=== PATIENT | male | born 1935 | race African-American/Black ===

== ENCOUNTER 2020-01-18 10:52 | Inpatient (IN) | payer MEDICARE, OTHER ==
[~2020-01-18] VITALS: Ht 180.3 cm; Wt 88.5 kg
[2020-01-18] MEDS ORDERED: Cefepime HCl 1 GM in D5W 55 ML IVPB ONE (11:00)
--- NOTE | 2020-01-18 11:00 | NUR ---
ED Nurse Note: pt BIBA from [facility] for hematuria. pt has suprapubic cobian catheter, urine in drainage bag appears to be cloudy yellow, no blood or redness is ntoed in bag. cathter insertion site dressing is clean dry and intact. pt denies any pain at this time. strong odor is noted
[2020-01-18 11:25] LABS: BASOPHILS % (AUTO) 2.5 % (0.0-2.0); EOSINOPHILS % (AUTO) 6.5 % (0.0-3.0); HEMATOCRIT 39.5 % (42.0-52.0); HEMOGLOBIN 12.5 G/DL (14.2-18.0); LYMPHOCYTES % (AUTO) 34.3 % (20.0-45.0); MEAN CORPUSCULAR VOLUME 98 FL (80-99); MONOCYTES % (AUTO) 8.3 % (1.0-10.0); NEUTROPHILS % (AUTO) 48.4 % (45.0-75.0); PLATELET COUNT 185 K/UL (150-450); RED BLOOD COUNT 4.02 M/UL (4.70-6.10); RED CELL DISTRIBUTION WIDTH 12.2 % (11.6-14.8)
[2020-01-18 11:26] LABS: APPEARANCE,URINE CLOUDY; BILIRUBIN, URINE NEGATIVE (NEGATIVE); GLUCOSE, URINE (UA) NEGATIVE (NEGATIVE); KETONES,URINE NEGATIVE (NEGATIVE); LEUKOCYTE ESTERASE ,URINE 3+ (NEGATIVE); NITRITE,URINE NEGATIVE (NEGATIVE); PH,URINE 9 (4.5-8.0); PROTEIN,URINE 3+ (NEGATIVE); UROBILINOGEN,URINE NORMAL MG/DL (0.0-1.0)
[2020-01-18 11:35] LABS: COLOR,URINE PALE YELLOW
[2020-01-18 11:40] LABS: ANION GAP 8 mmol/L (5-15); BLOOD UREA NITROGEN 18 mg/dL (7-18); CALCIUM 8.5 MG/DL (8.5-10.1); CARBON DIOXIDE 28 MMOL/L (21-32); CHLORIDE 107 MMOL/L (98-107); CREATININE 1.1 MG/DL (0.55-1.30); POTASSIUM 4.1 MMOL/L (3.5-5.1); SODIUM 143 MMOL/L (136-145)
[2020-01-18 11:44] LABS: ALANINE AMINOTRANSFERASE 10 U/L (12-78); ALBUMIN 3.3 G/DL (3.4-5.0); ALBUMIN/GLOBULIN RATIO 0.8 (1.0-2.7); ALKALINE PHOSPHATASE 62 U/L (46-116); ASPARTATE AMINO TRANSFERASE 21 U/L (15-37); BILIRUBIN,TOTAL 0.5 MG/DL (0.2-1.0)
--- NOTE | 2020-01-18 12:40 | NUR ---
ED Nurse Note: ERMD AT BEDSIDE REASSESSING SUPRAPUBIC CATH
[2020-01-18 13:03] VITALS: BP 136/79
--- NOTE | 2020-01-18 13:04 | NUR ---
ED Nurse Note: PT GIVEN MEAL AND JUICE
--- NOTE | 2020-01-18 13:23 | Emergency Room Report ---
History of Present Illness General Chief Complaint: General Complaint Source: Patient Present Illness HPI 84-year-old male with suprapubic catheter here for his suspicion of urinary tract infection. Patient repeatedly gets hematuria when he gets urinary tract infections. Per the residential report the patient began to have hematuria yesterday. According to the paramedics when they went to go pickers material handlers the patient there was a winch runner in the patient's room who had told him that the patient's suprapubic catheter had become dislodged and the winch runner had replaced the catheter. No nurses were available to corroborate the story. Patient denies any complaints at this time. Denies headaches, vision changes, fevers, chills, chest pain, palpitation, shortness of breath, back pain, abdominal pain, nausea, vomiting, diarrhea, dysuria. Allergies: Uncoded Allergies: TYRAMINE (Allergy, Unknown, 11/11/11) COVID-19 Screening Contact w/high risk pt: No Experienced COVID-19 symptoms?: No COVID-19 Testing performed SOCIAL INSURANCE ADMINISTRATOR: No Nursing Documentation-[facility] Past Medical History: No History, Except For Hx Hypertension: Yes History Of Psychiatric Problem: Yes - SCHIZOPHRENIRA Review of Systems All Other Systems: negative except mentioned in HPI Physical Exam Vital Signs Date Time Temp Pulse Resp B/P (MAP) Pulse Ox O2 Delivery O2 Flow Rate FiO2 01/18/20 10:54 16 100 Room Air 01/18/20 11:10 89 01/18/20 13:03 98.4 136/79 Sp02 EP Interpretation: reviewed, normal General Appearance: no apparent distress, alert, non-toxic Head: normocephalic, atraumatic Eyes: bilateral eye normal inspection, bilateral eye PERRL ENT: hearing grossly normal, normal pharynx, no angioedema, normal voice Neck: full range of motion, supple/symm/no masses Respiratory: chest non-tender, lungs clear, normal breath sounds, speaking full sentences Cardiovascular #1: regular rate, rhythm, no edema Cardiovascular #2: 2+ carotid (R), 2+ carotid (L), 2+ radial (R), 2+ radial (L), 2+ dorsalis pedis (R), 2+ dorsalis pedis (L) Gastrointestinal: normal bowel sounds, non tender, soft, non-distended, no guarding, no rebound Rectal: deferred Genitourinary: normal inspection, no CVA tenderness, other - Suprapubic catheter in proper positioning without any surrounding erythema or induration or drainage. Catheter balloon was properly inflated Musculoskeletal: back normal, normal range of motion, gait/station normal, non- tender Neurologic: alert, motor strength/tone normal, sensory intact, responsive, speech normal Psychiatric: judgement/insight normal, memory normal, mood/affect normal, no suicidal/homicidal ideation Lymphatic: no adenopathy Medical Decision Making Diagnostic Impression: Primary Impression: UTI (urinary tract infection) Additional Impression: Suprapubic catheter dysfunction ER Course Laboratory Tests Test 01/18/20 11:10 White Blood Count 4.0 K/UL (4.8-10.8) L Red Blood Count 4.02 M/UL (4.70-6.10) L Hemoglobin 12.5 G/DL (14.2-18.0) L Hematocrit 39.5 % (42.0-52.0) L Mean Corpuscular Volume 98 FL (80-99) Mean Corpuscular Hemoglobin 31.0 PG (27.0-31.0) Mean Corpuscular Hemoglobin Concent 31.6 G/DL (32.0-36.0) L Red Cell Distribution Width 12.2 % (11.6-14.8) Platelet Count 185 K/UL (150-450) Mean Platelet Volume 7.3 FL (6.5-10.1) Neutrophils (%) (Auto) 48.4 % (45.0-75.0) Lymphocytes (%) (Auto) 34.3 % (20.0-45.0) Monocytes (%) (Auto) 8.3 % (1.0-10.0) Eosinophils (%) (Auto) 6.5 % (0.0-3.0) H Basophils (%) (Auto) 2.5 % (0.0-2.0) H Urine Color Pale yellow Urine Appearance Cloudy Urine pH 9 (4.5-8.0) Urine Specific [place] 1.010 (1.005-1.035) Urine Protein 3+ (NEGATIVE) H Urine Glucose (UA) Negative (NEGATIVE) Urine Ketones Negative (NEGATIVE) Urine Blood 3+ (NEGATIVE) H Urine Nitrite Negative (NEGATIVE) Urine Bilirubin Negative (NEGATIVE) Urine Urobilinogen Normal MG/DL (0.0-1.0) Urine Leukocyte Esterase 3+ (NEGATIVE) H Urine RBC 0-2 /HPF (0 - 0) H Urine WBC 0-2 /HPF (0 - 0) Urine Squamous Epithelial Cells Occasional /LPF Urine Amorphous Sediment Many /LPF (NONE) H Urine Bacteria Few /HPF (NONE) Sodium Level 143 MMOL/L (136-145) Potassium Level 4.1 MMOL/L (3.5-5.1) Chloride Level 107 MMOL/L (98-107) Carbon Dioxide Level 28 MMOL/L (21-32) Anion Gap 8 mmol/L (5-15) Blood Urea Nitrogen 18 mg/dL (7-18) Creatinine 1.1 MG/DL (0.55-1.30) Estimated Glomerular Filtration Rate > 60 mL/min (>60) Glucose Level 86 MG/DL (74-106) Lactic Acid Level 0.70 mmol/L (0.4-2.0) Calcium Level 8.5 MG/DL (8.5-10.1) Total Bilirubin 0.5 MG/DL (0.2-1.0) Aspartate Amino Transferase (AST) 21 U/L (15-37) Alanine Aminotransferase (ALT) 10 U/L (12-78) L Alkaline Phosphatase 62 U/L (46-116) Total Protein 7.7 G/DL (6.4-8.2) Albumin 3.3 G/DL (3.4-5.0) L Globulin 4.4 g/dL Albumin/Globulin Ratio 0.8 (1.0-2.7) L 84-year-old male here for suspicion of urinary tract infection. The patient has a suprapubic catheter which according to the cotton weigher operator report had dislodged at [facility] residential and "a winch runner replaced it." There were no nurses available to corroborate the story. However in the emergency department the catheter appears to be properly placed and the balloon was properly inflated with 10 cc of saline. However the catheter was only draining a very small amount of urine. Urinalysis did reveal evidence of urinary tract infection. CBC, CMP all unremarkable. Urine cultures and blood cultures pending. Patient received a dose of cefepime in the emergency department. No evidence of sepsis. Received 1 L of normal saline. Admitted to [facility]. Last Vital Signs Date Time Temp Pulse Resp B/P (MAP) Pulse Ox O2 Delivery O2 Flow Rate FiO2 01/18/20 13:03 98.4 89 16 136/79 99 Room Air Referrals: Peace Devries MD (PCP) Chico Mendieta M.D. Jan 18, 2020 13:23
--- NOTE | 2020-01-18 13:35 | NUR ---
ED Nurse Note: REPORT GIVEN TO KIZZY BRUNO
--- NOTE | 2020-01-18 13:58 | NUR ---
TRANSFER TO FLOOR: Patient transferred to [facility] as ordered, per ERMD. Report given to YANA Hopson. Belongings given to pt.
--- NOTE | 2020-01-18 14:05 | NUR ---
NURSE NOTES: Patient admitted from ER via rcastine, patient resides @ [facility]. Patient is awake, opens his eyes spontaneously but confused. Orientation given about the unit but unable to comprehended due to patient's cognitive status. Patient is a fall risk per garcia fall score. Bed alarm is on, side rails x3 up. Call light within reach. Head to toe skin assessment done, no redness or skin break down on pressure points. Patient's lower ex's are dry and scarly on bilateral foot. Proper skin care done. Supra pubic noted draining but leaking, no blood or sediment,patient also urinate,given urinal. IV is intact,no s/s of infiltration. Paged Dr. elizabeth for admission orders. Awaiting for return call.
--- NOTE | 2020-01-18 15:05 | NUR ---
NURSE NOTES: Received admission orders from Dr. elizabeth and Rn spoke to Emmett from [facility] to fax the medication list due to no name on the med sheet. Rn also spoke to patient's daughter Michaela who states that patient is full code. Will continue plan of care.
[2020-01-18 16:00] VITALS: BP 140/69
[2020-01-18] MEDS ORDERED: SENNA8.6 M2 PO (16:09)
[2020-01-18] MEDS ORDERED: METOPROLOL TART25 MG ORAL (16:09)
[2020-01-18] MEDS ORDERED: SPIRONOLACTONE50 MG ORAL (16:09)
[2020-01-18] MEDS ORDERED: FLOMAX0.4 MG ORAL (16:09)
--- NOTE | 2020-01-18 16:20 | NUR ---
NURSE NOTES: Specimen obtained for MRSA, VRE and CRE due to patient resides board and care.
[2020-01-18] MEDS ORDERED: FUROSEMIDE20 M1 ORAL (17:09)
[2020-01-18] MEDS ORDERED: FOLIC ACID1 MG ORAL (17:09)
[2020-01-18] MEDS ORDERED: DONEPEZIL HCL10 M2 ORAL (17:09)
[2020-01-18] MEDS ORDERED: DOCUSATE SODIU100 MG ORAL (17:09)
[2020-01-18] MEDS ORDERED: MEMANTINE HCL E21 MG PO (17:09)
[2020-01-18] MEDS ORDERED: GABAPENTIN100 MG ORAL (17:09)
[2020-01-18] MEDS ORDERED: DUTASTERIDE0.5 MG PO (17:09)
[2020-01-18] MEDS ORDERED: AMLODIPINE BESYL5 MG ORAL (17:09)
--- NOTE | 2020-01-18 17:24 | NUR ---
NURSE NOTES: Received medication list from [place] with patient's name on it. Continued all home meds except 3 meds that we do not carry, Dr. Devries made aware.
--- NOTE | 2020-01-18 17:30 | NUR ---
NURSE NOTES: Patient ate 100% of dinner without issues.No blood in the urine.
[2020-01-18] MEDS: Docusate 100mg cap ORAL SCH (18:14)
--- NOTE | 2020-01-18 18:56 | NUR ---
NURSE HAND-OFF: Important Events on Shift:admission from [facility] Patient Status: stable Diet: low sodium with mech soft chopped Pending Orders: Pending Results/Labs: Pending MD notification: Latest Vital Signs: Temperature 97.7 , Pulse 59 , B/P 140 /69 , Respiratory Rate 21 , O2 SAT 98 , Room Air, O2 Flow Rate . Vital Sign Comment: Latest Page Fall Score: 50 Fall Risk: High Risk Safety Measures: Call light Within Reach, Bed Alarm Zone 1, Side Rails Side Rails x3, Bed position Low and Locked. Fall Precautions: Yellow Socks Yellow Gown Door Sign Patient Fall Education Report given to Mamie and endorsed plan of care.
--- NOTE | 2020-01-18 19:30 | NUR ---
NURSE NOTES: RECEIVED PATIENT FROM KIZZY CHANG. PATIENT IS AWAKE, RESTING IN BED, AAOX1, TO SELF, CONFUSED, ON ROOM AIR, NO ACUTE DISTRESS NOTED. VSS. AFEBRILE. PATIENT DENIES SOB AND PAIN. PIV ON RIGHT HAND 22G INTACT AND PATENT. BED IS LOCKED AND LOW, BED ALARMS ACTIVE, SIDE RAILS UPX2 AND CALL LIGHT IS WITHIN REACH. WILL CONTINUE TO MONITOR.
[2020-01-18 20:00] VITALS: BP 122/65
[2020-01-18] MEDS: Tamsulosin 0.4mg cap ORAL SCH (22:04)
[2020-01-18] MEDS: Cefepime HCl 1 GM in D5W 55 ML IVPB SCH (22:04)
[2020-01-18] MEDS: Acetaminophen 500mg (ES) tab ORAL PRN (22:16)
[2020-01-19] VITALS: BP 116/66
[2020-01-19 04:00] VITALS: BP 132/70
[2020-01-19 07:31] LABS: BASOPHILS % (AUTO) 1.4 % (0.0-2.0); HEMATOCRIT 37.6 % (42.0-52.0); HEMOGLOBIN 12.1 G/DL (14.2-18.0); LYMPHOCYTES % (AUTO) 48.9 % (20.0-45.0); MEAN CORPUSCULAR VOLUME 97 FL (80-99); MONOCYTES % (AUTO) 8.7 % (1.0-10.0); PLATELET COUNT 161 K/UL (150-450); RED BLOOD COUNT 3.86 M/UL (4.70-6.10); RED CELL DISTRIBUTION WIDTH 11.8 % (11.6-14.8); WHITE BLOOD COUNT 4.2 K/UL (4.8-10.8)
--- NOTE | 2020-01-19 07:38 | NUR ---
HAND-OFF: Report given to KIZZY Ramirez.
[2020-01-19 07:48] LABS: ALANINE AMINOTRANSFERASE 11 U/L (12-78); ALBUMIN/GLOBULIN RATIO 0.7 (1.0-2.7); ALKALINE PHOSPHATASE 53 U/L (46-116); ANION GAP 6 mmol/L (5-15); ASPARTATE AMINO TRANSFERASE 17 U/L (15-37); BILIRUBIN,TOTAL 0.5 MG/DL (0.2-1.0); BLOOD UREA NITROGEN 16 mg/dL (7-18); CALCIUM 8.2 MG/DL (8.5-10.1); CARBON DIOXIDE 28 MMOL/L (21-32); CHLORIDE 106 MMOL/L (98-107); POTASSIUM 3.6 MMOL/L (3.5-5.1); SODIUM 140 MMOL/L (136-145)
--- NOTE | 2020-01-19 07:50 | NUR ---
NURSE NOTES: Received patient on bed, awake and alert. IV intact and patent. Suprapubic catheter present. Bed in low and locked position and call light in reach. Patient educated to use call light for assistance before attempting to sit up. No signs of respiratory distress. Patient states he has a mild headache, will give PRN medication. Room board updated, will continue to monitor.
[2020-01-19 08:00] VITALS: BP 143/78
[2020-01-19] MEDS: Acetaminophen 500mg (ES) tab ORAL PRN (09:20)
[2020-01-19] MEDS: Cefepime HCl 1 GM in D5W 55 ML IVPB SCH ×2 (09:20→20:07)
[2020-01-19] MEDS: Sennosides 8.6mg tab ORAL SCH (09:20)
[2020-01-19] MEDS: Docusate 100mg cap ORAL SCH ×2 (09:21→17:08)
[2020-01-19] MEDS: Spironolactone 50mg tab ORAL SCH (09:21)
[2020-01-19] MEDS: Donepezil 10mg tab ORAL SCH (09:21)
[2020-01-19 12:00] VITALS: BP 140/81
--- NOTE | 2020-01-19 12:25 | NUR ---
NURSE NOTES: MD Walls changed suprapubic catheter to 16 tajik cobian. Catheter secured to right lega nd intact and patent and draining.
--- NOTE | 2020-01-19 15:00 | Consultation ---
DATE OF CONSULTATION: 01/19/2020 INFECTIOUS DISEASES CONSULTATION CONSULTING PHYSICIAN: Wilner Whitney MD. PRIMARY ATTENDING PHYSICIAN: Peace Devries MD. REASON FOR CONSULTATION: UTI. HISTORY OF PRESENT ILLNESS: This is an 84-year-old male admitted yesterday from nursing facility because of hematuria. The patient is suspected of UTI. The patient has suprapubic catheter and gets frequent infection. The patient's catheter was changed today. PAST MEDICAL HISTORY: Significant for Alzheimer dementia, hypertension, suprapubic catheter. ALLERGIES: MEDICATIONS: Getting Senokot, Lasix, Aricept, amlodipine, cefepime, Flomax, metoprolol, gabapentin, Colace, Tylenol. SOCIAL HISTORY: , intermediate resident. REVIEW OF SYSTEMS: The patient is hard of hearing. Has some pain in the lower abdomen especially during urination. PHYSICAL EXAMINATION: VITAL SIGNS: Temperature 97.3, pulse 55, blood pressure 143/78. GENERAL APPEARANCE: No acute distress, seems to have normal weight. HEAD AND NECK: Watts conjunctiva. HEART: Normal rate. LUNGS: Clear. ABDOMEN: Soft. GENITOURINARY: There is a suprapubic catheter. EXTREMITIES: No edema. NEUROLOGIC: Awake, responsive. LABORATORY AND DIAGNOSTIC DATA: Sodium 140, potassium 3.6, chloride 106, bicarb 28, BUN 16, creatinine is 1, glucose is 84. Normal LFT. WBC 4.2, hemoglobin 12.1, hematocrit 37.6, platelets is 161. UA showed leukocyte esterase 3+, amorphous sediment 3+, blood 3+. IMPRESSION: 1. UTI. 2. BPH. 3. Alzheimer dementia. 4. Suprapubic catheter infection that was changed. 5. Hypertension. RECOMMENDATION: Continue cefepime. We will follow up the cultures. At the end of my exam, I thank Dr. Devries for involving me in the care of this patient. Wilner Whitney M.D. DR: Lisette JOB#: [id number] CC:
[2020-01-19 16:00] VITALS: BP 132/65
--- NOTE | 2020-01-19 16:18 | NUR ---
NURSE NOTES: Received pt from KIZZY Ramirez for reassignment at 1600. Pt in bed, alert and oriented x 1, bed in lowest position with breaks engaged and alarm on, no SOB, IV line present on right hand, denies any pain or discomfort at this time, on room air, suprapubic catheter intact and in place, will continue to monitor and proceed with plan of care, call light within reach.
--- NOTE | 2020-01-19 17:00 | Consultation ---
DATE OF CONSULTATION: 01/19/2020 REASON FOR CONSULTATION: History of gross hematuria, nonfunctioning suprapubic catheter. HISTORY OF PRESENT ILLNESS: The patient was seen on with the above complaints. He is noncommunicative, so it is difficult to obtain history and status of his complaints. He does have a suprapubic tube in the low abdomen with minimal urine output and some white purulent discharge. REVIEW OF SYMPTOMS: Reviewed in the chart. MEDICATION LIST: Reviewed in the chart. FAMILY HISTORY: Reviewed in the chart. PHYSICAL EXAMINATION: VITAL SIGNS: He is afebrile. Vital signs are stable. ABDOMEN: Soft and nontender. GENITOURINARY: Scrotal exam is normal. PROCEDURE: The old suprapubic catheter, 16-Pakistani Garsia was removed and a new 16-Pakistani Garsia catheter was reinserted through the fistula tract. The bladder was irrigated with 40 mL of normal saline. No evidence of hematuria. The balloon was inflated to 10 mL of water and dressing was changed around the suprapubic catheter. The patient tolerated the procedure well. ASSESSMENT AND PLAN: Chronic retention, retained suprapubic tube. I would recommend to change his suprapubic tube at least every 3 months. The best plan will be every 1 month. I will follow this patient with you. Johnny Walls M.D. DR: Everette JOB#: [id number] CC:
--- NOTE | 2020-01-19 19:26 | NUR ---
NURSE HAND-OFF: Important Events on Shift:[new suprapubic catheter in place, safety and comfort] Patient Status: [stable] Diet: [low sodium mechanical soft chopped] Pending Orders: [] Pending Results/Labs:[] Pending MD notification:[] Latest Vital Signs: Temperature 97.6 , Pulse 60 , B/P 132 /65 , Respiratory Rate 16 , O2 SAT 97 , Room Air, O2 Flow Rate . Vital Sign Comment: [] Latest Page Fall Score: 50 Fall Risk: High Risk Safety Measures: Call light Within Reach, Bed Alarm Zone 1, Side Rails Side Rails x2, Bed position Low and Locked. Fall Precautions: Yellow Socks Yellow Gown Door Sign Patient Fall Education Report given to [KIZZY Albarado].
--- NOTE | 2020-01-19 19:36 | NUR ---
NURSE NOTES: Patient awake in bed, on room air, no signs or complaint of pain. With IV on right hand. Instructed to use call light for assistance. Bed in lowest, lock engaged and alarm on. Will continue plan of care.
[2020-01-19 20:00] VITALS: BP 119/66
[2020-01-19] MEDS: Tamsulosin 0.4mg cap ORAL SCH (20:07)
--- NOTE | 2020-01-19 20:30 | History and Physical Report ---
DATE OF ADMISSION: 01/18/2020 HISTORY OF PRESENT ILLNESS: Patient is a poor historian. Has dementia. Patient is being admitted because of UTI and initial hematuria. Patient's suprapubic catheter was also dislodged. Patient denies nausea, vomiting, or diarrhea. Denies pain. Denies shortness of breath. Denies cough. Denies fever or chills, but he is a poor historian. PAST MEDICAL HISTORY: History of BPH, dementia, history of leg edema, history of prostate CA, history of constipation, hypertension, hearing deficit. PAST SURGICAL HISTORY: Suprapubic catheter. ALLERGIES: To tyramine. MEDICATIONS: Folic acid, Colace, Lasix, gabapentin, Namenda, metoprolol, Senokot, spironolactone, and Flomax. FAMILY HISTORY: Noncontributory. SOCIAL HISTORY: No history of smoking. No history of alcohol or illicit drugs. Comes from a facility. REVIEW OF SYSTEMS: HEENT: Denies headaches. RESPIRATORY: Denies shortness of breath. Denies cough. CARDIOVASCULAR: Denies chest pain. GASTROINTESTINAL: Denies nausea, vomiting, or diarrhea. EXTREMITIES: Denies pain. CENTRAL NERVOUS SYSTEM: Denies change in speech pattern, however, is a poor historian. PHYSICAL EXAMINATION: VITAL SIGNS: Temperature is 97.3, pulse is 55, blood pressure is 143/78. HEENT: PERRLA. NECK: Supple. No lymphadenopathy. CHEST: Clear to auscultation. CARDIOVASCULAR: Bradycardic. No murmurs. GASTROINTESTINAL: Suprapubic catheter in place. Abdomen is soft. No organomegaly. EXTREMITIES: No edema. NEUROLOGIC: Patient is wheelchair bound. Lower extremity paresis. Oriented x1, which is his baseline. LABORATORY DATA: WBC of 4, hemoglobin of 12.5, platelets 185. Sodium 143, potassium 4.1, BUN of 18, creatinine 0.1. ASSESSMENT AND PLAN: UTI, hematuria, possible dislodgement of the suprapubic catheter. I have consulted Dr. Walls, Dr. Wilner Whitney. Antibiotics per Dr. Wilner Whitney. Peace Devries M.D. DR: RED JOB#: [id number] CC:
[2020-01-20] VITALS: BP 121/67
[2020-01-20 04:00] VITALS: BP 128/66
[2020-01-20] MEDS: Acetaminophen 500mg (ES) tab ORAL PRN (05:38)
--- NOTE | 2020-01-20 06:43 | NUR ---
NURSE HAND-OFF: Important Events on Shift: Cleaned, SCD's applied Patient Status: Diet: Low Sodium mech soft chopped Pending Orders: Pending Results/Labs: Pending MD notification: Latest Vital Signs: Temperature 98.2 , Pulse 54 , B/P 128 /66 , Respiratory Rate 16 , O2 SAT 95 , Room Air, O2 Flow Rate . Vital Sign Comment: Latest Page Fall Score: 50 Fall Risk: High Risk Safety Measures: Call light Within Reach, Bed Alarm Zone 1, Side Rails Side Rails x2, Bed position Low and Locked. Fall Precautions: Yellow Socks Yellow Gown Door Sign Patient Fall Education
--- NOTE | 2020-01-20 07:23 | NUR ---
HAND-OFF: Report given to KIZZY Ramirez.
--- NOTE | 2020-01-20 07:55 | NUR ---
NURSE NOTES: Received patient on bed awake and alert and eating. Subrapubic catheter intact and draining. IV site intact and patent. Bed in low and locked position, call light in reach. Patient was educated to use call light for assistance. No signs of respiratory distress or pain. Will continue to monitor.
[2020-01-20 08:00] VITALS: BP 127/73
[2020-01-20] MEDS: Donepezil 10mg tab ORAL SCH (09:29)
[2020-01-20] MEDS: Spironolactone 50mg tab ORAL SCH (09:29)
[2020-01-20] MEDS: Cefepime HCl 1 GM in D5W 55 ML IVPB SCH ×2 (09:29→22:12)
[2020-01-20] MEDS: Docusate 100mg cap ORAL SCH ×2 (09:30→17:58)
[2020-01-20] MEDS: Sennosides 8.6mg tab ORAL SCH (09:30)
--- NOTE | 2020-01-20 11:57 | Infectious Diseases Prog Note ---
Assessment/Plan Assessment/Plan IMPRESSION: 1. UTI. 2. BPH. 3. Alzheimer dementia. 4. Suprapubic catheter infection that was changed. 5. Hypertension. RECOMMENDATION: Continue cefepime Will f/u cultures Subjective ROS Limited/Unobtainable: Yes Respiratory: Reports: no symptoms Gastrointestinal/Abdominal: Reports: no symptoms Genitourinary: Reports: no symptoms Allergies: Uncoded Allergies: TYRAMINE (Allergy, Unknown, 11/11/11) Objective Last 24 Hour Vital Signs Date Time Temp Pulse Resp B/P (MAP) Pulse Ox O2 Delivery O2 Flow Rate FiO2 01/20/20 09:30 63 127/73 01/20/20 09:30 63 127/73 01/20/20 09:08 Room Air 01/20/20 08:00 97.5 63 18 127/73 (91) 95 01/20/20 04:00 98.2 54 16 128/66 (86) 95 01/20/20 00:00 97.9 55 16 121/67 (85) 94 01/19/20 20:26 Room Air 01/19/20 20:08 58 119/66 01/19/20 20:00 96.8 58 16 119/66 (83) 94 01/19/20 16:00 97.6 60 16 132/65 (87) 97 01/19/20 12:00 97.5 53 18 140/81 (100) 94 Height (Feet): 5 Height (Inches): 11.00 Weight (Pounds): 195 General Appearance: no acute distress HEENT: mucous membranes moist Respiratory/Chest: lungs clear Cardiovascular: normal rate Abdomen: soft, non tender Genitourinary: other - suprapubic catheter Extremities: no edema Neurologic/Psychiatric: alert, responsive Microbiology Date/Time Source Procedure Growth Status 01/18/20 16:10 Rectum - Final NO CARBAPENEM-RESISTANT ENTEROBACTERI... Complete 01/18/20 16:10 Rectum VRE Culture - Final NO VANCOMYCIN RESISTANT ENTEROCOCCUS ... 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 Complete Current Medications Medications (Trade) Dose Ordered Sig/Jaime Route PRN Reason Start Time Stop Time Status Last Admin Dose Admin Acetaminophen (Tylenol) 500 mg Q4H PRN ORAL Mild Pain (Pain Scale 1-3) 01/18/20 15:30 02/17/20 15:29 01/20/20 05:38 Amlodipine Besylate (Norvasc) 5 mg DAILY ORAL 01/19/20 09:00 02/18/20 08:59 01/20/20 09:30 Cefepime HCl 1 gm/ Dextrose 55 ml @ 110 mls/hr EVERY 12 HOURS IVPB 01/18/20 21:00 01/25/20 20:59 01/20/20 09:29 Docusate Sodium (Colace) 100 mg TWICE A DAY ORAL 01/18/20 18:00 02/17/20 17:59 01/20/20 09:30 Donepezil HCl (Aricept) 10 mg DAILY ORAL 01/19/20 09:00 02/18/20 08:59 01/20/20 09:29 Folic Acid (Folate) 1 mg DAILY ORAL 01/19/20 09:00 02/18/20 08:59 01/20/20 09:29 Furosemide (Lasix) 20 mg DAILY ORAL 01/19/20 09:00 02/18/20 08:59 01/20/20 09:30 Gabapentin (Neurontin) 200 mg THREE TIMES A DAY ORAL 01/18/20 18:00 02/17/20 17:59 01/20/20 09:30 Metoprolol Tartrate (Lopressor) 25 mg EVERY 12 HOURS ORAL 01/18/20 21:00 04/17/20 20:59 01/20/20 09:30 Sennosides (Senokot) 8.6 mg DAILY ORAL 01/19/20 09:00 02/18/20 08:59 01/20/20 09:30 Spironolactone (Aldactone) 50 mg DAILY ORAL 01/19/20 09:00 02/18/20 08:59 01/20/20 09:29 Tamsulosin HCl (Flomax) 0.4 mg QHS ORAL 01/18/20 21:00 02/17/20 20:59 01/19/20 20:07 Wilner Whitney MD Jan 20, 2020 11:57
--- NOTE | 2020-01-20 13:02 | General Progress Note ---
Subjective ROS Limited/Unobtainable: Yes Allergies: Uncoded Allergies: TYRAMINE (Allergy, Unknown, 11/11/11) Objective Last 24 Hour Vital Signs Date Time Temp Pulse Resp B/P (MAP) Pulse Ox O2 Delivery O2 Flow Rate FiO2 01/20/20 09:30 63 127/73 01/20/20 09:30 63 127/73 01/20/20 09:08 Room Air 01/20/20 08:00 97.5 63 18 127/73 (91) 95 01/20/20 04:00 98.2 54 16 128/66 (86) 95 01/20/20 00:00 97.9 55 16 121/67 (85) 94 01/19/20 20:26 Room Air 01/19/20 20:08 58 119/66 01/19/20 20:00 96.8 58 16 119/66 (83) 94 01/19/20 16:00 97.6 60 16 132/65 (87) 97 Intake and Output 01/19/20 01/20/20 19:00 07:00 Intake Total 800 ml 255 ml Output Total 1200 ml 700 ml Balance -400 ml -445 ml Intake Oral 800 ml 200 ml IV Total 55 ml Output Urine Total 1200 ml 700 ml Height (Feet): 5 Height (Inches): 11.00 Weight (Pounds): 195 Assessment/Plan Problem List: (1) Suprapubic catheter dysfunction ICD Codes: T83.010A - Breakdown (mechanical) of cystostomy catheter, initial encounter SNOMED: 893932817 (2) UTI (urinary tract infection) ICD Codes: N39.0 - Urinary tract infection, site not specified SNOMED: 90060066 Status: progressing Assessment/Plan: suprapubic cath is changed by dr sidhu uti abx per id obs reviwed chart Peace Devries MD Jan 20, 2020 13:02
[2020-01-20 13:23] VITALS: BP 112/64
--- NOTE | 2020-01-20 14:53 | NUR ---
NURSE NOTES: Patient refused lunch tray.
--- NOTE | 2020-01-20 15:06 | NUR ---
NURSE NOTES: Received pt from KIZZY Ramirez for reassignment at 1500. Pt in bed, alert and oriented x 1, bed in lowest position with breaks engaged and alarm on, no shortness of breath, IV line present on right hand, denies any pain or discomfort at this time, on room air, suprapubic catheter intact and in place, will continue to monitor and proceed with plan of care, call light within reach
[2020-01-20 16:00] VITALS: BP 124/62
--- NOTE | 2020-01-20 19:10 | NUR ---
NURSE HAND-OFF: Important Events on Shift:[monitoring VS and labs, turning q2, assisting with ADLS] Patient Status: [stable] Diet: [] Pending Orders: [] Pending Results/Labs:[] Pending MD notification:[] Latest Vital Signs: Temperature 97.2 , Pulse 58 , B/P 124 /62 , Respiratory Rate 16 , O2 SAT 95 , Room Air, O2 Flow Rate . Vital Sign Comment: [] Latest Page Fall Score: 50 Fall Risk: High Risk Safety Measures: Call light Within Reach, Bed Alarm Zone 1, Side Rails Side Rails x2, Bed position Low and Locked. Fall Precautions: Yellow Socks Yellow Gown Door Sign Patient Fall Education Report given to [KIZZY Albarado].
--- NOTE | 2020-01-20 19:28 | NUR ---
NURSE NOTES: Patient awake in bed, on room air, no complaint of SOB. Suprapubic cath intact and draining well. He was carrying the urine bag on the bed and wanted to go to the toilet. Encouraged to stay in bed and do his bowel due to fall risk. Call light and needs in reach. Bed in lowest, lock engaged and alarm on. Will continue plan of care.
[2020-01-20 20:00] VITALS: BP 112/57
[2020-01-20] MEDS: Tamsulosin 0.4mg cap ORAL SCH (22:12)
[2020-01-21] VITALS: BP 103/62
[2020-01-21 04:00] VITALS: BP 106/58
--- NOTE | 2020-01-21 06:22 | NUR ---
NURSE HAND-OFF: Important Events on Shift: moved from 401-1 to 419-1 Patient Status: stable Diet: low sodium Pending Orders: Pending Results/Labs: Pending MD notification: Latest Vital Signs: Temperature 97.0 , Pulse 57 , B/P 106 /58 , Respiratory Rate 16 , O2 SAT 94 , Room Air, O2 Flow Rate . Vital Sign Comment: Latest Page Fall Score: 50 Fall Risk: High Risk Safety Measures: Call light Within Reach, Bed Alarm Zone 1, Side Rails Side Rails x2, Bed position Low and Locked. Fall Precautions: Yellow Socks Yellow Gown Door Sign Patient Fall Education
--- NOTE | 2020-01-21 07:13 | NUR ---
HAND-OFF: Report given to KIZZY Hutchinson.
[2020-01-21 08:00] VITALS: BP 119/69
[2020-01-21] MEDS: Spironolactone 50mg tab ORAL SCH (08:28)
[2020-01-21] MEDS: Cefepime HCl 1 GM in D5W 55 ML IVPB SCH ×2 (08:28→20:37)
[2020-01-21] MEDS: Docusate 100mg cap ORAL SCH ×2 (08:28→17:27)
[2020-01-21] MEDS: Sennosides 8.6mg tab ORAL SCH (08:29)
[2020-01-21] MEDS: Donepezil 10mg tab ORAL SCH (08:30)
--- NOTE | 2020-01-21 10:09 | NUR ---
NURSE NOTES: received patient awake, alert oriented resting comfortably in bed, on room air, no complaint of SOB. HL patent, Suprapubic cath intact and draining well. on fall precaution . Call light and needs in reach. Bed in lowest, lock engaged and alarm on. Will continue plan of care buzz marroquin
--- NOTE | 2020-01-21 11:24 | NUR ---
RD ASSESSMENT & RECOMMENDATIONS SEE CARE ACTIVITY FOR COMPLETE ASSESSMENT DAILY ESTIMATED NEEDS: Needs based on Cardiac 80.8kg abw 25-30 kcals/kg 2772-8279 total kcals 1-1.2 g protein/kg 81-97 g total protein 25-30 mL/kg 6790-4797 total fluid mLs NUTRITION DIAGNOSIS: Swallowing difficulty r/t dysphagia as evidenced by pt on ms chopped texture diet. CURRENT DIET: Low Na PO DIET RECOMMENDATIONS: Maintain Low Na diet/ texture per HOUSE REGISTRY RN ADDITIONAL RECOMMENDATIONS: 1) HOUSE REGISTRY RN eval for appropriate texture 2) Ensure Enlive qdaily @lunch (350 kcal, 20g pro each) 3) Monitor lytes on lasix 4) maintain calibrated bed scale wts
--- NOTE | 2020-01-21 11:44 | Infectious Diseases Prog Note ---
Assessment/Plan Assessment/Plan IMPRESSION: 1. UTI. 2. BPH. 3. Alzheimer dementia. 4. Suprapubic catheter infection that was changed. 5. Hypertension. RECOMMENDATION: Continue cefepime Will f/u cultures Subjective ROS Limited/Unobtainable: Yes Constitutional: Denies: fever Allergies: Uncoded Allergies: TYRAMINE (Allergy, Unknown, 11/11/11) Objective Last 24 Hour Vital Signs Date Time Temp Pulse Resp B/P (MAP) Pulse Ox O2 Delivery O2 Flow Rate FiO2 01/21/20 08:29 60 119/69 01/21/20 08:29 60 119/69 01/21/20 08:10 Room Air 01/21/20 08:00 97.4 60 18 119/69 (86) 97 01/21/20 04:00 97.0 57 16 106/58 (74) 94 01/21/20 00:00 98.1 56 16 103/62 (76) 97 01/20/20 21:00 62 112/57 01/20/20 21:00 Room Air 01/20/20 20:00 97.3 62 16 112/57 (75) 93 01/20/20 16:00 97.2 58 16 124/62 (82) 95 01/20/20 13:23 98.3 56 16 112/64 (80) 95 Height (Feet): 5 Height (Inches): 11.00 Weight (Pounds): 195 HEENT: mucous membranes moist Respiratory/Chest: lungs clear Cardiovascular: normal rate Abdomen: soft, non tender Genitourinary: other - suprapubic catheter Extremities: no edema Neurologic/Psychiatric: other - sleeping Microbiology Date/Time Source Procedure Growth Status 01/18/20 16:10 Rectum - Final NO CARBAPENEM-RESISTANT ENTEROBACTERI... Complete 01/18/20 16:10 Rectum VRE Culture - Final NO VANCOMYCIN RESISTANT ENTEROCOCCUS ... 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 Complete Current Medications Medications (Trade) Dose Ordered Sig/Jaime Route PRN Reason Start Time Stop Time Status Last Admin Dose Admin Acetaminophen (Tylenol) 500 mg Q4H PRN ORAL Mild Pain (Pain Scale 1-3) 01/18/20 15:30 02/17/20 15:29 01/20/20 05:38 Amlodipine Besylate (Norvasc) 5 mg DAILY ORAL 01/19/20 09:00 02/18/20 08:59 01/21/20 08:29 Cefepime HCl 1 gm/ Dextrose 55 ml @ 110 mls/hr EVERY 12 HOURS IVPB 01/18/20 21:00 01/25/20 20:59 01/21/20 08:28 Docusate Sodium (Colace) 100 mg TWICE A DAY ORAL 01/18/20 18:00 02/17/20 17:59 01/21/20 08:28 Donepezil HCl (Aricept) 10 mg DAILY ORAL 01/19/20 09:00 02/18/20 08:59 01/21/20 08:30 Folic Acid (Folate) 1 mg DAILY ORAL 01/19/20 09:00 02/18/20 08:59 01/21/20 08:29 Furosemide (Lasix) 20 mg DAILY ORAL 01/19/20 09:00 02/18/20 08:59 01/21/20 08:30 Gabapentin (Neurontin) 200 mg THREE TIMES A DAY ORAL 01/18/20 18:00 02/17/20 17:59 01/21/20 08:29 Metoprolol Tartrate (Lopressor) 25 mg EVERY 12 HOURS ORAL 01/18/20 21:00 04/17/20 20:59 01/21/20 08:29 Sennosides (Senokot) 8.6 mg DAILY ORAL 01/19/20 09:00 02/18/20 08:59 01/21/20 08:29 Spironolactone (Aldactone) 50 mg DAILY ORAL 01/19/20 09:00 02/18/20 08:59 01/21/20 08:28 Tamsulosin HCl (Flomax) 0.4 mg QHS ORAL 01/18/20 21:00 02/17/20 20:59 01/20/20 22:12 Wilner Whitney MD Jan 21, 2020 11:44
[2020-01-21 11:58] VITALS: BP 108/60
--- NOTE | 2020-01-21 14:10 | General Progress Note ---
Subjective ROS Limited/Unobtainable: Yes Allergies: Uncoded Allergies: TYRAMINE (Allergy, Unknown, 11/11/11) Objective Last 24 Hour Vital Signs Date Time Temp Pulse Resp B/P (MAP) Pulse Ox O2 Delivery O2 Flow Rate FiO2 01/21/20 11:58 97.3 66 18 108/60 (76) 96 01/21/20 08:29 60 119/69 01/21/20 08:29 60 119/69 01/21/20 08:10 Room Air 01/21/20 08:00 97.4 60 18 119/69 (86) 97 01/21/20 04:00 97.0 57 16 106/58 (74) 94 01/21/20 00:00 98.1 56 16 103/62 (76) 97 01/20/20 21:00 62 112/57 01/20/20 21:00 Room Air 01/20/20 20:00 97.3 62 16 112/57 (75) 93 01/20/20 16:00 97.2 58 16 124/62 (82) 95 Intake and Output 01/20/20 01/21/20 19:00 07:00 Intake Total 500 ml 255 ml Output Total 400 ml 650 ml Balance 100 ml -395 ml Intake Oral 500 ml 200 ml IV Total 55 ml Output Urine Total 400 ml 650 ml Height (Feet): 5 Height (Inches): 11.00 Weight (Pounds): 195 Assessment/Plan Problem List: (1) Suprapubic catheter dysfunction ICD Codes: T83.010A - Breakdown (mechanical) of cystostomy catheter, initial encounter SNOMED: 530315530 (2) UTI (urinary tract infection) ICD Codes: N39.0 - Urinary tract infection, site not specified SNOMED: 56403516 Status: progressing Assessment/Plan: suprapubic cath is changed by dr sidhu uti is improving afebrile getting better no hematurea Peace Devries MD Jan 21, 2020 14:10
[2020-01-21 16:00] VITALS: BP 118/70
--- NOTE | 2020-01-21 19:40 | NUR ---
NURSE HAND-OFF: Important Events on Shift:[none] Patient Status: [improving] Diet: [ LOW NA DIET] Pending Orders: [LABS IN AM] Pending Results/Labs:[NONE] Pending MD notification:[NONE] Latest Vital Signs: Temperature 97.9 , Pulse 57 , B/P 118 /70 , Respiratory Rate 18 , O2 SAT 96 , Room Air, O2 Flow Rate . Vital Sign Comment: [STABLE] Latest Page Fall Score: 50 Fall Risk: High Risk Safety Measures: Call light Within Reach, Bed Alarm Zone 1, Side Rails Side Rails x2, Bed position Low and Locked. Fall Precautions: Yellow Socks Yellow Gown Door Sign Patient Fall Education Report given to [JAY DURAND accordingly].
[2020-01-21 20:00] VITALS: BP 117/67
[2020-01-21] MEDS: Tamsulosin 0.4mg cap ORAL SCH (20:36)
[2020-01-21] MEDS: Acetaminophen 500mg (ES) tab ORAL PRN (20:37)
[2020-01-22] VITALS: BP 113/59
[2020-01-22 04:00] VITALS: BP 131/76
[2020-01-22 07:27] LABS: BASOPHILS % (AUTO) 1.4 % (0.0-2.0); EOSINOPHILS % (AUTO) 3.9 % (0.0-3.0); HEMATOCRIT 40.6 % (42.0-52.0); HEMOGLOBIN 13.3 G/DL (14.2-18.0); LYMPHOCYTES % (AUTO) 32.2 % (20.0-45.0); MEAN CORPUSCULAR VOLUME 96 FL (80-99); MONOCYTES % (AUTO) 8.4 % (1.0-10.0); NEUTROPHILS % (AUTO) 54.1 % (45.0-75.0); PLATELET COUNT 171 K/UL (150-450); RED BLOOD COUNT 4.22 M/UL (4.70-6.10); RED CELL DISTRIBUTION WIDTH 11.9 % (11.6-14.8); WHITE BLOOD COUNT 4.2 K/UL (4.8-10.8)
--- NOTE | 2020-01-22 07:27 | NUR ---
NURSE HAND-OFF: Important Events on Shift: No hematuria noted Patient Status: Stable Diet: Low sodium Pending Orders: Pending Results/Labs: Pending MD notification: Latest Vital Signs: Temperature 97.2 , Pulse 64 , B/P 131 /76 , Respiratory Rate 17 , O2 SAT 95 , Room Air, O2 Flow Rate . Vital Sign Comment: Latest Page Fall Score: 50 Fall Risk: High Risk Safety Measures: Call light Within Reach, Bed Alarm Zone 1, Side Rails Side Rails x2, Bed position Low and Locked. Fall Precautions: Yellow Socks Yellow Gown Door Sign Patient Fall Education Report given to Radha DURAND.
[2020-01-22 07:52] LABS: ANION GAP 7 mmol/L (5-15); BLOOD UREA NITROGEN 16 mg/dL (7-18); CALCIUM 8.5 MG/DL (8.5-10.1); CARBON DIOXIDE 28 MMOL/L (21-32); CHLORIDE 103 MMOL/L (98-107); CREATININE 0.9 MG/DL (0.55-1.30); POTASSIUM 3.5 MMOL/L (3.5-5.1); SODIUM 138 MMOL/L (136-145)
--- NOTE | 2020-01-22 07:57 | NUR ---
NURSE NOTES: Patient awake, alert x3; on room air, no sing of distress and shortness of breath; no sing of chest pain; Supra pub catheter in place, collects yellow urine; IV Left Hand flushes well; side rails up x2, breaks engaged, bed at lowest position; call light within reach; will keep monitoring.
[2020-01-22 08:00] VITALS: BP 111/60
[2020-01-22] MEDS: Sennosides 8.6mg tab ORAL SCH (08:36)
[2020-01-22] MEDS: Donepezil 10mg tab ORAL SCH (08:36)
[2020-01-22] MEDS: Spironolactone 50mg tab ORAL SCH (08:36)
[2020-01-22] MEDS: Docusate 100mg cap ORAL SCH ×2 (08:36→17:12)
[2020-01-22] MEDS: Cefepime HCl 1 GM in D5W 55 ML IVPB SCH ×2 (08:37→20:31)
[2020-01-22] MEDS: Acetaminophen 500mg (ES) tab ORAL PRN ×2 (08:38→20:32)
[2020-01-22 12:00] VITALS: BP 99/67
--- NOTE | 2020-01-22 13:22 | Infectious Diseases Prog Note ---
Assessment/Plan Assessment/Plan IMPRESSION: 1. UTI. 2. BPH. 3. Alzheimer dementia. 4. Suprapubic catheter infection that was changed. 5. Hypertension. RECOMMENDATION: Continue cefepime Will f/u cultures Subjective ROS Limited/Unobtainable: No Constitutional: Reports: no symptoms HEENT: Reports: no symptoms Respiratory: Reports: no symptoms Gastrointestinal/Abdominal: Reports: other - flank pain Allergies: Uncoded Allergies: TYRAMINE (Allergy, Unknown, 11/11/11) Objective Last 24 Hour Vital Signs Date Time Temp Pulse Resp B/P (MAP) Pulse Ox O2 Delivery O2 Flow Rate FiO2 01/22/20 12:00 97.1 68 18 99/67 (78) 98 01/22/20 09:08 97.9 01/22/20 09:00 Room Air 01/22/20 08:36 83 111/60 01/22/20 08:36 83 111/60 01/22/20 08:00 97.9 83 19 111/60 (77) 97 01/22/20 04:00 97.2 64 17 131/76 (94) 95 01/22/20 00:00 97.5 58 16 113/59 (77) 95 01/21/20 21:00 Room Air 01/21/20 21:00 55 117/67 01/21/20 20:00 97.2 55 16 117/67 (84) 95 01/21/20 16:00 97.9 57 18 118/70 (86) 96 Height (Feet): 5 Height (Inches): 11.00 Weight (Pounds): 195 HEENT: mucous membranes moist Respiratory/Chest: lungs clear Cardiovascular: normal rate Abdomen: soft, non tender Genitourinary: other - Suprapubic catheter Extremities: no edema Neurologic/Psychiatric: alert, responsive Laboratory Tests Test 01/22/20 06:45 White Blood Count 4.2 K/UL (4.8-10.8) L Red Blood Count 4.22 M/UL (4.70-6.10) L Hemoglobin 13.3 G/DL (14.2-18.0) L Hematocrit 40.6 % (42.0-52.0) L Mean Corpuscular Volume 96 FL (80-99) Mean Corpuscular Hemoglobin 31.5 PG (27.0-31.0) H Mean Corpuscular Hemoglobin Concent 32.7 G/DL (32.0-36.0) Red Cell Distribution Width 11.9 % (11.6-14.8) Platelet Count 171 K/UL (150-450) Mean Platelet Volume 7.5 FL (6.5-10.1) Neutrophils (%) (Auto) 54.1 % (45.0-75.0) Lymphocytes (%) (Auto) 32.2 % (20.0-45.0) Monocytes (%) (Auto) 8.4 % (1.0-10.0) Eosinophils (%) (Auto) 3.9 % (0.0-3.0) H Basophils (%) (Auto) 1.4 % (0.0-2.0) Sodium Level 138 MMOL/L (136-145) Potassium Level 3.5 MMOL/L (3.5-5.1) Chloride Level 103 MMOL/L (98-107) Carbon Dioxide Level 28 MMOL/L (21-32) Anion Gap 7 mmol/L (5-15) Blood Urea Nitrogen 16 mg/dL (7-18) Creatinine 0.9 MG/DL (0.55-1.30) Estimat Glomerular Filtration Rate > 60 mL/min (>60) Glucose Level 79 MG/DL (74-106) Calcium Level 8.5 MG/DL (8.5-10.1) Current Medications Medications (Trade) Dose Ordered Sig/Jaime Route PRN Reason Start Time Stop Time Status Last Admin Dose Admin Acetaminophen (Tylenol) 500 mg Q4H PRN ORAL Mild Pain (Pain Scale 1-3) 01/18/20 15:30 02/17/20 15:29 01/22/20 08:38 Amlodipine Besylate (Norvasc) 5 mg DAILY ORAL 01/19/20 09:00 02/18/20 08:59 01/22/20 08:36 Cefepime HCl 1 gm/ Dextrose 55 ml @ 110 mls/hr EVERY 12 HOURS IVPB 01/18/20 21:00 01/25/20 20:59 01/22/20 08:37 Docusate Sodium (Colace) 100 mg TWICE A DAY ORAL 01/18/20 18:00 02/17/20 17:59 01/22/20 08:36 Donepezil HCl (Aricept) 10 mg DAILY ORAL 01/19/20 09:00 02/18/20 08:59 01/22/20 08:36 Folic Acid (Folate) 1 mg DAILY ORAL 01/19/20 09:00 02/18/20 08:59 01/22/20 08:35 Furosemide (Lasix) 20 mg DAILY ORAL 01/19/20 09:00 02/18/20 08:59 01/22/20 08:36 Gabapentin (Neurontin) 200 mg THREE TIMES A DAY ORAL 01/18/20 18:00 02/17/20 17:59 01/22/20 08:35 Metoprolol Tartrate (Lopressor) 25 mg EVERY 12 HOURS ORAL 01/18/20 21:00 04/17/20 20:59 01/22/20 08:36 Sennosides (Senokot) 8.6 mg DAILY ORAL 01/19/20 09:00 02/18/20 08:59 01/22/20 08:36 Spironolactone (Aldactone) 50 mg DAILY ORAL 01/19/20 09:00 02/18/20 08:59 01/22/20 08:36 Tamsulosin HCl (Flomax) 0.4 mg QHS ORAL 01/18/20 21:00 02/17/20 20:59 01/21/20 20:36 Wilner Whitney MD Jan 22, 2020 13:22
--- NOTE | 2020-01-22 14:55 | General Progress Note ---
Subjective ROS Limited/Unobtainable: Yes Allergies: Uncoded Allergies: TYRAMINE (Allergy, Unknown, 11/11/11) Objective Last 24 Hour Vital Signs Date Time Temp Pulse Resp B/P (MAP) Pulse Ox O2 Delivery O2 Flow Rate FiO2 01/22/20 12:00 97.1 68 18 99/67 (78) 98 01/22/20 09:08 97.9 01/22/20 09:00 Room Air 01/22/20 08:36 83 111/60 01/22/20 08:36 83 111/60 01/22/20 08:00 97.9 83 19 111/60 (77) 97 01/22/20 04:00 97.2 64 17 131/76 (94) 95 01/22/20 00:00 97.5 58 16 113/59 (77) 95 01/21/20 21:00 Room Air 01/21/20 21:00 55 117/67 01/21/20 20:00 97.2 55 16 117/67 (84) 95 01/21/20 16:00 97.9 57 18 118/70 (86) 96 Intake and Output 01/21/20 01/22/20 19:00 07:00 Intake Total 535 ml 415 ml Output Total 800 ml 400 ml Balance -265 ml 15 ml Intake Oral 480 ml IV Total 55 ml 55 ml Other 360 ml Output Urine Total 800 ml 400 ml Laboratory Tests 01/22/20 06:45: White Blood Count 4.2L, Red Blood Count 4.22L, Hemoglobin 13.3L, Hematocrit 40.6L, Mean Corpuscular Volume 96, Mean Corpuscular Hemoglobin 31.5H, Mean Corpuscular Hemoglobin Concent 32.7, Red Cell Distribution Width 11.9, Platelet Count 171, Mean Platelet Volume 7.5, Neutrophils (%) (Auto) 54.1, Lymphocytes (%) (Auto) 32.2, Monocytes (%) (Auto) 8.4, Eosinophils (%) (Auto) 3.9H, Basophils (%) (Auto) 1.4, Sodium Level 138, Potassium Level 3.5, Chloride Level 103, Carbon Dioxide Level 28, Anion Gap 7, Blood Urea Nitrogen 16, Creatinine 0.9, Estimat Glomerular Filtration Rate > 60, Glucose Level 79, Calcium Level 8.5 Height (Feet): 5 Height (Inches): 11.00 Weight (Pounds): 195 Assessment/Plan Problem List: (1) Suprapubic catheter dysfunction ICD Codes: T83.010A - Breakdown (mechanical) of cystostomy catheter, initial encounter SNOMED: 911307651 (2) UTI (urinary tract infection) ICD Codes: N39.0 - Urinary tract infection, site not specified SNOMED: 15494333 Status: progressing Assessment/Plan: suprapubic cath is changed by dr sidhu uti is improving afebrile abx per id Peace Devries MD Jan 22, 2020 14:55
[2020-01-22 16:00] VITALS: BP 117/64
--- NOTE | 2020-01-22 19:29 | NUR ---
NURSE NOTES: Patient in bed, awake, alert and verbally responsive. Able to make needs known. Respiration is even and unlabored. Complaint of abdominal pain, will given PRn pain medication as ordered. Skin is warm and dry to touch. Iv site noted. Bed in low and locked position. Provided safe environment. Call light is at bedside. Will continue plan of care.
--- NOTE | 2020-01-22 19:29 | NUR ---
HAND-OFF: Report given to KIZZY Murphy.
[2020-01-22 20:00] VITALS: BP 123/71
[2020-01-22] MEDS: Tamsulosin 0.4mg cap ORAL SCH (20:31)
--- NOTE | 2020-01-22 20:37 | NUR ---
NURSE NOTES: Given PRn pain medication for abdominal pain scale 3/10, will reassess. Patient is alert. Call light is at bedside. Will continue plan of care.
[2020-01-23] VITALS: BP 120/74
[2020-01-23 04:00] VITALS: BP 111/70
--- NOTE | 2020-01-23 07:07 | NUR ---
NURSE HAND-OFF: Important Events on Shift:WNL Patient Status: Diet: Pending Orders: Pending Results/Labs: Pending MD notification: Latest Vital Signs: Temperature 98.2 , Pulse 62 , B/P 111 /70 , Respiratory Rate 17 , O2 SAT 96 , Room Air, O2 Flow Rate . Vital Sign Comment: WNL Latest Page Fall Score: 50 Fall Risk: High Risk Safety Measures: Call light Within Reach, Bed Alarm Zone 1, Side Rails Side Rails x2, Bed position Low and Locked. Fall Precautions: Yellow Socks Yellow Gown Door Sign Patient Fall Education Report given to KIZZY Garcia.
--- NOTE | 2020-01-23 07:14 | NUR ---
NURSE NOTES: Patient awake, alert x3, forget full; on room air, no sing of distress and shortness of breath; no sing of chest pain; IV Left-Hand TKO; Supra-pubic catheter in place, collects yellow urine; side rails up x2, breaks engaged, bed at lowest position; call light within reach; will keep monitoring.
[2020-01-23 08:00] VITALS: BP 115/63
[2020-01-23] MEDS: Spironolactone 50mg tab ORAL SCH (08:19)
[2020-01-23] MEDS: Donepezil 10mg tab ORAL SCH (08:19)
[2020-01-23] MEDS: Sennosides 8.6mg tab ORAL SCH (08:20)
[2020-01-23] MEDS: Docusate 100mg cap ORAL SCH ×2 (08:20→17:09)
[2020-01-23] MEDS: Cefepime HCl 1 GM in D5W 55 ML IVPB SCH ×2 (08:21→20:43)
--- NOTE | 2020-01-23 11:44 | General Progress Note ---
Subjective ROS Limited/Unobtainable: Yes Allergies: Uncoded Allergies: TYRAMINE (Allergy, Unknown, 11/11/11) Objective Last 24 Hour Vital Signs Date Time Temp Pulse Resp B/P (MAP) Pulse Ox O2 Delivery O2 Flow Rate FiO2 01/23/20 09:00 Room Air 01/23/20 08:20 60 115/63 01/23/20 08:19 60 115/63 01/23/20 08:00 97.3 60 17 115/63 (80) 96 01/23/20 04:00 98.2 62 17 111/70 (84) 96 01/23/20 00:00 97.4 76 16 120/74 (89) 93 01/22/20 20:48 Room Air 01/22/20 20:34 59 123/71 01/22/20 20:00 98.4 57 16 123/71 (88) 97 01/22/20 16:00 98.0 58 19 117/64 (81) 97 01/22/20 12:00 97.1 68 18 99/67 (78) 98 Intake and Output 01/22/20 01/23/20 19:00 07:00 Intake Total 590 ml 295 ml Output Total 450 ml 375 ml Balance 140 ml -80 ml Intake Oral 480 ml 240 ml IV Total 110 ml 55 ml Output Urine Total 450 ml 375 ml # Voids 1 Height (Feet): 5 Height (Inches): 11.00 Weight (Pounds): 195 Assessment/Plan Problem List: (1) Suprapubic catheter dysfunction ICD Codes: T83.010A - Breakdown (mechanical) of cystostomy catheter, initial encounter SNOMED: 592918473 (2) UTI (urinary tract infection) ICD Codes: N39.0 - Urinary tract infection, site not specified SNOMED: 52192619 Status: progressing Assessment/Plan: suprapubic cath is changed by dr sidhu uti dc planning afebrile dc in Peace Goodman MD Jan 23, 2020 11:43
[2020-01-23 16:00] VITALS: BP 115/59
--- NOTE | 2020-01-23 19:33 | NUR ---
HAND-OFF: Report given to KIZZY Troy.
--- NOTE | 2020-01-23 19:40 | NUR ---
NURSE NOTES: Patient awake in bed, calm, on room air, no distress noted. No complaint at this time. IV access on the left hand g. 22. Instructed to use call light. Call light and needs in reach. Bed in lowest, lock engaged and alarm on. Will continue plan of care.
[2020-01-23 20:00] VITALS: BP 120/66
[2020-01-23] MEDS: Tamsulosin 0.4mg cap ORAL SCH (20:42)
[2020-01-24] VITALS: BP 100/56
[2020-01-24 04:00] VITALS: BP 112/60
--- NOTE | 2020-01-24 07:00 | NUR ---
NURSE HAND-OFF: Important Events on Shift: had 1 BM Patient Status: stable Diet: low sodium Pending Orders: Pending Results/Labs: Pending MD notification: Latest Vital Signs: Temperature 96.5 , Pulse 52 , B/P 112 /60 , Respiratory Rate 16 , O2 SAT 96 , Room Air, O2 Flow Rate . Vital Sign Comment: Latest Page Fall Score: 50 Fall Risk: High Risk Safety Measures: Call light Within Reach, Bed Alarm Zone 1, Side Rails Side Rails x2, Bed position Low and Locked. Fall Precautions: Yellow Socks Yellow Gown Door Sign Patient Fall Education
--- NOTE | 2020-01-24 07:35 | NUR ---
NURSE NOTES: Patient awake, alert x3, periods of forgetfulness. on room air, no s/sx of acute distress noted. Suprapubic catheter inplaced. drains yellow color urine. PIV Left Hand patent and intact. refused to eat breakfast.kept bed in the lowest position. side rails up x3, brakes engaged, call light within reach; will cont the plan of care.
--- NOTE | 2020-01-24 07:38 | NUR ---
HAND-OFF: Report given to Ashtyn.
[2020-01-24 08:00] VITALS: BP 132/62
[2020-01-24] MEDS: Sennosides 8.6mg tab ORAL SCH (08:39)
[2020-01-24] MEDS: Spironolactone 50mg tab ORAL SCH (08:39)
[2020-01-24] MEDS: Donepezil 10mg tab ORAL SCH (08:40)
[2020-01-24] MEDS: Docusate 100mg cap ORAL SCH (08:40)
[2020-01-24] MEDS: Cefepime HCl 1 GM in D5W 55 ML IVPB SCH (10:32)
--- NOTE | 2020-01-24 10:46 | NUR ---
NURSE NOTES: CALLED MARYBETH KELLER AND LEFT VOICEMESSAGE TO INFORM RE; DISCHARGE TODAY. SPOKE WITH TRISTIN, DAUGHTER AND INFORMED ABOUT THE DISCHARGE. PATIENT IS UNABLE TO SIGN PERSONAL BELONGINGS, D/C INSTRUCTIONS ALTHOUGH I WENT OVER WITH THE PATIENT. AWAITING FOR AMBULANCE. WILL CONT TO MONITOR.
[2020-01-24 12:00] VITALS: BP 115/55
--- NOTE | 2020-01-24 12:25 | NUR ---
NURSE NOTES: DISCHARGE BACK TO [facility] WITH STABLE CONDITION. REMOVED IV ACCESS. SUPRAPUBIC IS INPLACED. VSS. SKIN IS INTACT. BM X1. D/C INSTRUCTIONS GIVEN.
--- NOTE | 2020-01-26 11:59 | Discharge Summary ---
Discharge Summary Discharge Summary _ DATE OF ADMISSION: 01/18/2020 DATE OF DISCHARGE: 01/24/2020 DISCHARGED BY: Dr Devries REASON FOR ADMISSION: 84 years old male with past medical history of hypertension, schizophrenia, suprapubic catheter was sent for evaluation due to urinary tract infection. Patient apparently had a hematuria the day prior to presentation. 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 However no nurses were available to corroborate the story. Upon evaluation vital signs were stable laboratory work-up revealed WBC 4.0 hemoglobin 12.5 hematocrit 39.5 platelet counts 185 urinalysis revealed +3 protein +3 blood +3 leukocyte esterase no pyuria and only few bacteria. 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 Mike Peralta urologist Dr. Walls surgery psychiatrist HOSPITAL COURSE: [] Patient admitted e to medical surgical floor home medication resumed. Patient was on empiric antibiotic as per ID specialist recommendation blood culture came back negative urologist seen and evaluated patient the old suprapubic catheter was removed and a new 16-gauge Thai Garsia catheter was reinserted through the fistula tract. No evidence of hematuria the bladder wall is irrigated with 40 mL of normal saline. No evidence of hematuria balloons and inflated dressing was changed around the suprapubic catheter patient tolerated procedure well. Urologist recommended to change suprapubic catheter at least every 3 months but the best every months. Blood pressure was managed with current medication regimen and remained stable. Supportive care provided patient clinically stabilized and was ready for discharge. FINAL DIAGNOSES: Chronic urinary retention Suprapubic catheter replacement pH Alzheimer dementia UTI HTN BPH DISCHARGE MEDICATIONS: See Medication Reconciliation list. DISCHARGE INSTRUCTIONS: Patient was discharged to assisted living. Follow-up with a primary care provider in 1 week. I have been assigned to dictate discharge summary for this account. I was not involved in the patient's management. Bryanna Simeon NP Jan 26, 2020 11:59
== END 2020-01-24 12:25 | disposition home or self-care (01) | DRG 699 ==
LOC: EDBD 10:52 → EMR 12:13 → 4E 12:17 → EDBEDREQ 12:58 → 4E 01-20 22:18
DX: T83.020A Displacement of cystostomy catheter, initial encounter (principal); N39.0 Urinary tract infection, site not specified; I10 Essential (primary) hypertension; F20.9 Schizophrenia, unspecified; Z88.8 Allergy status to other drugs, medicaments and biological substances; Z85.46 Personal history of malignant neoplasm of prostate; R31.9 Hematuria, unspecified; N40.1 Benign prostatic hyperplasia with lower urinary tract symptoms; R33.8 Other retention of urine; G30.9 Alzheimer's disease, unspecified; F02.80 Dementia in other diseases classified elsewhere, unspecified severity, without behavioral disturbance, psychotic disturbance, mood disturbance, and anxiety; H91.90 Unspecified hearing loss, unspecified ear
CPT/HCPCS: 36415; 80048; 80053; 81003; 83605; 85025; 87040; 87081; 96365; 99285; J7030